=== PATIENT | male | born 1965 ===

== ENCOUNTER → 2020-11-23 | Outpatient (CLI) | payer OTHER ==
[~2020-11-23] MED LIST: CHOL500050 PO; DOCU50CA9 PO; GABA-585 PO; MELO15TA23 PO
--- NOTE | 2020-11-23 15:08 | PDOC1 ---
INITIAL PAIN CONSULT DATE OF SERVICE: DOS: DATE: 11/23/20 TIME: 14:59 CHIEF COMPLAINT: Chief Complaint: Low back and right lower extremity pain HISTORY OF PRESENT ILLNESS: 55-year-old male presents with history of pain in the low back and right lower extremity for about 1 year now. Patient reports he had surgery of in 2003 with a fusion at L5-S1 with similar pain at that time but now returning over the past year or so without any specific injury or accident that he is aware of. Patient reports pain is in the low back itself with some radiation into the right posterior gluteus posterior thigh lateral thigh some of the anterior thigh as well but mostly in the posterior aspect of the right leg patient reports that sharp and stabbing throbbing shooting tingling with radiating pain in the right leg intermittent in intensity worse with walking standing changing positions better with sitting or laying down but does awaken from sleep about 2-3 times at night.. Patient reports he has had some increased constipation since the pain is increasing but no incontinence patient reports it does affect his ability to walk is not use any assistive devices to ambulate. Patient reports he continues to workout about 4 times a week and has a treadmill in his office at home which he uses fairly consistently. Patient is been taking meloxicam as well as gabapentin both of which are not decreasing the pain significantly patient has had physical therapy in August 2019 as well as epidural injections in 2002 prior to his surgery neither which were significantly helpful. Patient rates his disability rating 0-10 10 being the worst is a 9 with family home responsibilities and occupational activities 8 with recreation social activity 9 with life support activities, 5 with sexual behavior, 5 with self care activitie s. PAST MEDICAL HISTORY: PMH: Hearing loss, arthritis sleep apnea PREVIOUS SURGERIES: Past Surgical Hx: Lumbar fusion 2003 CURRENT MEDICATIONS: Current Meds: Active Scripts Medications Dose Route/Sig Max Daily Dose Days Date Category Meloxicam 15 Mg Tablet 1 Tab PO DAILY 30 11/23/20 Reported ALLERGIES; Allergies: Coded Allergies: No Known Drug Allergies (Unverified , 11/23/20) FAMILY HISTORY: Family Hx: Cancers SOCIAL HISTORY: Social Hx: Patient drinks alcohol 4-6 drinks a week on average does not smoke does not use any illegal illicit or recreational drugs, is lives with his spouse lives locally in [facility] and 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 REVIEW OF SYSTEMS: ROS: Positive for those items mentioned in history of present illness, all systems ar e reviewed, otherwise negative ,and are complete full and well-documented on patient's chart. PHYSICAL EXAM: VS: Blood pressure is 140/94 pulse 84 respirations 16 temperature 98.2 F height is 6 foot 4 inches weight is 240 pounds PE: PHYSICAL EXAMINATION: GENERAL: The patient is awake, alert, oriented, appropriate, very pleasant demeanor HEENT: Shows normocephalic, atraumatic. Extraocular movements are intact and symmetrical. Oral cavity: Mucous membranes moist and pink. Dentition is intact. NECK: Shows anterior throat supple without palpable lymphadenopathy noted. Swallow reflex symmetrical. CHEST: Shows normal on inspection. Breath sounds are clear bilaterally, no rales or rhonchi. HEART: Shows S1, S2 clear. No murmurs auscultated. ABDOMEN: Soft, nontender, nondistended, obese. No palpable organomegaly is noted. No rebound or guarding demonstrated. BACK: Shows spine grossly in the midline. Normal-appearing cervical lordotic curvature. There is slightly increased thoracic kyphosis, some minor flattening of the lumbar lordotic curvature. Lumbar paraspinous muscles show symmetrical on inspection, on palpation shows some moderate tenderness diffusely throughout the upper, middle and lower distribution of the paraspinous muscles bilaterally and also into the lower thoracic paraspinous musculature, firm and tender, but without specific trigger points, without radiation of pain. The patient has good rotational motion of the lumbar spine, both laterally as well as extension and flexion without significant difficulty. No tenderness over the spinous processes, sacrum or sacroiliac regions. EXTREMITIES: Lower extremities show deep tendon reflexes 2+ in the patellar and tendo calcaneus tendons. Motor exam is 5 on a scale of 5 with right dorsiflexion, extension, quadriceps and hamstring flexion and 5/5 on the left. Peripheral pulses are 1+ posterior tibial. No peripheral edema is noted bilaterally. Lower extremities are warm and dry to touch, equal in color and appearance. Straight leg raise noted to be negative bilaterally. Gaenslen's and Miles's maneuvers are negative bilaterally as well. The patient is able to stand, stand on his toes without difficulty or loss of balance, walks with a normal-appearing gait does not appear to favor the right or left lower extremity significantly and does not use any assistive devices to ambulate. SKIN: Shows warm and dry, good turgor. No edema. No sores, rashes or bruising throughout. IMPRESSION: Impression: 55-year-old male with approximate 1 year history increasing pain low back right lower extremity in a radicular fashion MRI scan lumbar spine showing mild loss of disc space height and signal intensity L4-5 and L3-4 also dissipate height and symmetrical bulging of the annulus with moderately advanced hypertrophic degenerative facet joint changes with ligamentum flavum capsular thickening and facet joint effusions Arthritis Hearing loss Options were discussed with the patient including conservative medical management physical therapies and interventional techniques. Patient would like to pursue interventional techniques. We discussed a lumbar epidural steroid injection using description as well as anatomical models described the procedure. Patient will wait for preauthorization with his insurance provider once this is obtained will return for lumbar epidural steroid injection. Patient will continue with stretching strength exercises, current medication regimen, and exercising as currently. AKOSUA SANDERS MD Nov 23, 2020 15:07
== END | disposition home or self-care (01) ==
LOC: PNCL 13:40
PROVIDERS: ATTEND Anesthesiology
DX: M54.5 Low back pain (principal); M79.604 Pain in right leg; I10 Essential (primary) hypertension; M19.90 Unspecified osteoarthritis, unspecified site; G47.30 Sleep apnea, unspecified; Z79.899 Other long term (current) drug therapy; Z98.890 Other specified postprocedural states
CPT/HCPCS: G0463

== ENCOUNTER → 2020-12-07 | Outpatient (CLI) | payer OTHER ==
[~2020-12-07] MED LIST changes: +IOHEXOL 180 MG/ML 10 ML VIAL. ONE; +methylPREDNISolone ACETATE 40 MG/ML VIAL. ONE; +methylPREDNISolone ACETATE 80 MG/ML VIAL. ONE
--- NOTE | 2020-12-07 13:36 | PDOC ---
Progress Note - Pain Clinic Date of Service: DOS: DATE: 12/07/20 TIME: 13:33 Diagnosis: Dx: Lumbar radiculopathy with lumbar degenerative disease and lumbar postlaminectomy syndrome History or Present Illness: HPI: 55-year-old male returns follow-up status post initial evaluation preauthorization for lumbar epidural steroid injection. Patient reports he is received the authorization would like to proceed. Patient reports that he has pain in the low back right lower extremity as it was previously posterior gluteus posterior lateral thigh anterior thigh with some burning sensation in the posterior hip as well on the right side. Patient reports is aching and sharp tight and shooting at times tingling and burning with a stabbing burning pain in the right gluteus patient reports is radiating constant severe and off and on in intensity patient describes as an eight on scale ten is worse over the past week six on average and a 4 days least is a six today. Patient reports no new motor or sensory deficits no new bowel or bladder incontinence or other complaints. Physical Exam: VS: Blood pressure is 156/89 pulse eighty-four respirations are sixteen temperature is 98.7 F weight is 238 pounds height is 6 foot 4-1/2 inches PE: PHYSICAL EXAMINATION: GENERAL: The patient is awake, alert, oriented, appropriate, very pleasant demeanor HEENT: Shows normocephalic, atraumatic. Extraocular movements are intact and symmetrical. NECK: Shows anterior throat supple without palpable lymphadenopathy noted. Swallow reflex symmetrical. CHEST: Shows normal on inspection. Breath sounds are clear bilaterally. HEART: Shows S1, S2 clear. No murmurs auscultated. ABDOMEN: Soft, nontender, nondistended. No palpable organomegaly is noted. BACK: Shows spine grossly in the midline. Normal-appearing cervical lordotic curvature. There is slightly increased thoracic kyphosis, some minor flattening of the lumbar lordotic curvature. Lumbar paraspinous muscles show symmetrical on inspection, on palpation shows some moderate tenderness diffusely throughout the upper, middle and lower distribution of the paraspinous muscles, but without specific trigger points, without radiation of pain. The patient has good rotational motion of the lumbar spine, both laterally as well as extension and flexion without significant difficulty. No tenderness over the spinous processes, sacrum or sacroiliac regions. EXTREMITIES: Lower extremities show deep tendon reflexes 2+ in the patellar and tendo calcaneus tendons. Motor exam is five on a scale of 5 with right dorsiflexion, extension, quadriceps and hamstring flexion and five/5 on the left. Peripheral pulses are 1+ posterior tibial. No peripheral edema is noted bilaterally. Lower extremities are warm and dry to touch, equal in color and appearance. SKIN: Shows warm and dry, good turgor. No edema. No sores, rashes or bruising throughout. Procedure: Procedure: Options discussed with the patient. Patient chart reviewed his his current m edication regimen updated current review of systems updated today as well. We will proceed with a lumbar epidural steroid ejections today with fluoroscopic guidance. Risks were discussed including but not limited to: Bleeding, infection, possibility of epidural hematoma and subsequent neurological compromise, dural puncture, headaches, spinal cord and/or nerve damage, side effects of steroid medication, and poor results regarding pain control. Patient understands and wished to proceed. Patient will return to clinic in approximate 2 weeks for follow-up, was counseled as to return appointment activity level and side effects to be aware of. Medication Injected: Med Injected: Procedure is lumbar epidural steroid injection under local anesthetic using sterile prep and drape at the L4-5 level using C-arm fluoroscopic guidance in both AP and lateral views medications injected is 120mg Depo-Medrol + ten mL preservative-free normal saline and 2 mL contrast- condition at discharge is stable patient tolerated procedure well had no complications. Condition at Discharge: Condition at Discharge: Condition at discharge stable, patient related procedure well and had no complications. AKOSUA SANDERS MD Dec 07, 2020 13:36
--- NOTE | 2020-12-07 13:37 | PDOC4 ---
PROCEDURE Procedure Patient was consented for lumbar epidural steroid injection. Risks were dis cussed including but not limited to: Bleeding, infection, possibility of epidural hematoma and subsequent neurological compromise, dural puncture, headaches, spinal cord and/or nerve damage, side effects of steroid medication, and poor results regarding pain control. Patient understands and wished to proceed. Procedure is lumbar epidural steroid injection under local anesthetic using sterile prep and drape at the L4-5 level using C-arm fluoroscopic guidance in both AP and lateral views medications injected is one hundred twenty mg Depo- Medrol + ten mL preservative-free normal saline and 2 mL contrast- condition at discharge is stable patient tolerated procedure well had no complications. AKOSUA SANDERS MD Dec 07, 2020 13:37
== END | disposition home or self-care (01) ==
LOC: PNCL 12:56
PROVIDERS: ATTEND Anesthesiology
DX: M51.16 Intervertebral disc disorders with radiculopathy, lumbar region (principal); M96.1 Postlaminectomy syndrome, not elsewhere classified; Z79.899 Other long term (current) drug therapy
CPT/HCPCS: 62323; J1030; J1040; Q9965

== ENCOUNTER → 2020-12-21 | Outpatient (CLI) | payer OTHER ==
--- NOTE | 2020-12-21 13:32 | PDOC4 ---
PROCEDURE Procedure Patient was consented for lumbar epidural steroid injection. Risks were dis cussed including but not limited to: Bleeding, infection, possibility of epidural hematoma and subsequent neurological compromise, dural puncture, headaches, spinal cord and/or nerve damage, side effects of steroid medication, and poor results regarding pain control. Patient understands and wished to proceed. Procedure is lumbar epidural steroid injection under local anesthetic using sterile prep and drape at the L4-5 level using C-arm fluoroscopic guidance in both AP and lateral views medications injected is 120 mg Depo-Medrol + 10 mL preservative-free normal saline and 2 mL contrast- condition at discharge is stable patient tolerated procedure well had no complications. AKOSUA SANDERS MD Dec 21, 2020 13:32
--- NOTE | 2020-12-21 13:32 | PDOC ---
Progress Note - Pain Clinic Date of Service: DOS: DATE: 12/21/20 TIME: 13:28 Diagnosis: Dx: Lumbar radiculopathy with lumbar degenerative disc disease and lumbar postlaminectomy syndrome History or Present Illness: HPI: 55-year-old male returns for follow-up status post lumbar epidural steroid injection x1. Patient reports about 50% improvement pain returning now but not as much in the right lower extremity. Patient reports he has significant pain in the low back with activity standing walking changing positions but the right leg is doing much better near 100%. Patient reports its radiating pain across the low back down slightly into the right lower extremity mostly the posterior lateral thigh but mostly in the back stabbing and aching in the back as well patient rates his pain as a 5 on a scale of 10 is worse over the past week 3 on average 1 its least and is a 3 today patient reports no new motor or sensory deficits he can increase his activity distance walking doing household activities work activities sleeping better at night still wakes him occasionally sleep but only once maybe 5 to 6 hours at the most. Patient reports no new motor or sensory deficits no new bowel or bladder incontinence. Physical Exam: VS: Blood pressure is 140/94 pulse 78 respirations 16 temperature 90.8 was Fahrenheit weight is 237 pounds PE: PHYSICAL EXAMINATION: GENERAL: The patient is awake, alert, oriented, appropriate, very pleasant demeanor HEENT: Shows normocephalic, atraumatic. Extraocular movements are intact and symmetrical. Oral cavity: Mucous membranes moist and pink. NECK: Shows anterior throat supple without palpable lymphadenopathy noted. Swallow reflex symmetrical. CHEST: Shows normal on inspection. Breath sounds are clear bilaterally. HEART: Shows S1, S2 clear. No murmurs auscultated. ABDOMEN: Soft, nontender, nondistended. No palpable organomegaly is noted. No rebound or guarding demonstrated. BACK: Shows spine grossly in the midline. Normal-appearing cervical lordotic curvature. There is slightly increased thoracic kyphosis, some minor flattening of the lumbar lordotic curvature. Lumbar paraspinous muscles show symmetrical on inspection, on palpation shows some moderate tenderness diffusely throughout the upper, middle and lower distribution of the paraspinous muscles, but without specific trigger points, without radiation of pain. The patient has good rotational motion of the lumbar spine, both laterally as well as extension and flexion without significant difficulty. EXTREMITIES: Lower extremities show deep tendon reflexes 2+ in the patellar and tendo calcaneus tendons. Motor exam is 5 on a scale of 5 with right dorsiflexion, extension, quadriceps and hamstring flexion and 5/5 on the left. Peripheral pulses are 1+ posterior tibial. No peripheral edema is noted bilaterally. Lower extremities are warm and dry to touch, equal in color and appearance. SKIN: Shows warm and dry, good turgor. No edema. No sores, rashes or bruising throughout. Procedure: Procedure: Options were discussed with the patient. Patient chart was reviewed his his current medication regimen updated current review of systems updated today as well. We will proceed with a second in the series lumbar epidural steroid injection today with fluoroscopic guidance. Risks were discussed including but not limited to: Bleeding, infection, possibility of epidural hematoma and subsequent neurological compromise, dural puncture, headaches, spinal cord and/or nerve damage, side effects of steroid medication, and poor results regarding pain control. Patient understands and wished to proceed. Patient will return to the clinic in approximate 2 weeks for follow-up, was counseled as to return appointment activity level and side effects be aware of. Medication Injected: Med Injected: Procedure is lumbar epidural steroid injection under local anesthetic using sterile prep and drape at the L4-5 level using C-arm fluoroscopic guidance in both AP and lateral views medications injected is 120 mg Depo-Medrol + 10 mL preservative-free normal saline and 2 mL contrast- condition at discharge is stable patient tolerated procedure well had no complications. Condition at Discharge: Condition at Discharge: Condition at discharge stable, patient already procedure well and had no complications. AKOSUA SANDERS MD Dec 21, 2020 13:32
== END | disposition home or self-care (01) ==
LOC: PNCL 12:50
PROVIDERS: ATTEND Anesthesiology
DX: M51.16 Intervertebral disc disorders with radiculopathy, lumbar region (principal); M96.1 Postlaminectomy syndrome, not elsewhere classified; Z79.899 Other long term (current) drug therapy
CPT/HCPCS: 62323; J1030; J1040; Q9965

== ENCOUNTER → 2021-01-25 | Outpatient (CLI) | payer OTHER ==
--- NOTE | 2021-01-25 14:05 | PDOC ---
Progress Note - Pain Clinic Date of Service: DOS: DATE: 01/25/21 TIME: 14:03 Diagnosis: Dx: Lumbar radiculopathy with lumbar degenerative disease and lumbar postlaminectomy syndrome History or Present Illness: HPI: 55-year-old male returns to follow-up status post lumbar epidural steroid injection x2. Patient reports about 50% improvement overall pain in his low back and right lower extremity patient ports the thigh is doing much better on the right still some pain in the back more noticeable with repetitive motion patient was very active over the weekend and was doing some yard work which is because the pain increased a bit and some on the left side as well in the low back patient reports overall is doing much better is increasing his daily activities with greater ease and comfort walking greater distances doing yardwork household work as well as traveling with greater ease patient reports his pain is 8 on scale 10 is worse over the past week 6 on average to its least is a 6 today patient ports aching shooting burning in the back on and off in intensity still waking from sleep occasionally but only once every 2-3 hours at a time. Patient reports no new motor or sensory deficits no new bowel or bladder incontinence no other complaints. Physical Exam: VS: Blood pressure is 126/86 pulse 84 respirations are 16 temperature 98.7 F weight 234 pounds PE: PHYSICAL EXAMINATION: GENERAL: The patient is awake, alert, oriented, appropriate, very pleasant demeanor HEENT: Shows normocephalic, atraumatic. Extraocular movements are intact and symmetrical. Oral cavity: Mucous membranes moist and pink. Dentition is intact. NECK: Shows anterior throat supple without palpable lymphadenopathy noted. Swallow reflex symmetrical. CHEST: Shows normal on inspection. Breath sounds are clear bilaterally. HEART: Shows S1, S2 clear. No murmurs auscultated. ABDOMEN: Soft, nontender, nondistended. No palpable organomegaly is noted. No rebound or guarding demonstrated. BACK: Shows spine grossly in the midline. Normal-appearing cervical lordotic curvature. There is slightly increased thoracic kyphosis, some flattening of the lumbar lordotic curvature, with well-healed midline surgical scarring. Lumbar paraspinous muscles show symmetrical on inspection, on palpation shows some moderate tenderness diffusely throughout the upper, middle and lower distribution of the paraspinous muscles without specific trigger points, without radiation of pain. The patient has good rotational motion of the lumbar spine, both laterally as well as extension and flexion without significant difficulty. EXTREMITIES: Lower extremities show deep tendon reflexes 2+ in the patellar and tendo calcaneus tendons. Motor exam is 5 on a scale of 5 with right dorsiflexion, extension, quadriceps and hamstring flexion and 5/5 on the left. Peripheral pulses are 1+ posterior tibial. No peripheral edema is noted bilaterally. Lower extremities are warm and dry to touch, equal in color and appearance. SKIN: Shows warm and dry, good turgor. No edema. No sores, rashes or bruising throughout. Procedure: Procedure: Options were discussed with the patient. Patient chart reviews his current medication regimen updated current review of systems updated today as well. We will proceed with a third in the series lumbar epidural steroid injection same fluoroscopic guidance. Risks were discussed including but not limited to: Bleeding, infection, possibility of epidural hematoma and subsequent neurological compromise, dural puncture, headaches, spinal cord and/or nerve damage, side effects of steroid medication, and poor results regarding pain control. Patient understands and wished to proceed. Patient return to clinic in approximate 2 weeks for follow-up, was counseled as return appointment activity level and side effects to be aware. Medication Injected: Med Injected: Procedure is lumbar epidural steroid injection under local anesthetic using sterile prep and drape at the 4 5 level using C-arm fluoroscopic guidance in both AP and lateral views medications injected is 120 mg Depo-Medrol + 10 mL preservative-free normal saline and 2 mL contrast- condition at discharge is stable patient tolerated procedure well had no complications. Condition at Discharge: Condition at Discharge: Condition at discharge stable, patient alert procedure well and had no complications. AKOSUA SANDERS MD Jan 25, 2021 14:05
--- NOTE | 2021-01-25 14:06 | PDOC4 ---
PROCEDURE Procedure Patient was consented for lumbar epidural steroid injection. Risks were dis cussed including but not limited to: Bleeding, infection, possibility of epidural hematoma and subsequent neurological compromise, dural puncture, headaches, spinal cord and/or nerve damage, side effects of steroid medication, and poor results regarding pain control. Patient understands and wished to proceed. Procedure is lumbar epidural steroid injection under local anesthetic using sterile prep and drape at the L4-5 level using C-arm fluoroscopic guidance in both AP and lateral views medications injected is 120 mg Depo-Medrol + 10 mL preservative-free normal saline and 2 mL contrast- condition at discharge is stable patient tolerated procedure well had no complications. AKOSUA SANDERS MD Jan 25, 2021 14:06
== END | disposition home or self-care (01) ==
LOC: PNCL 13:30
PROVIDERS: ATTEND Anesthesiology
DX: M51.16 Intervertebral disc disorders with radiculopathy, lumbar region (principal); M96.1 Postlaminectomy syndrome, not elsewhere classified; Z79.899 Other long term (current) drug therapy
CPT/HCPCS: 62323; J1030; J1040; Q9965